=== PATIENT | female | born 1965 | race Caucasian/White ===

== ENCOUNTER 2017-12-10 05:23 | Day surgery (SDC) | payer MEDICAID ==
[2017-12-08 15:32] LABS: CLARITY,URINE CLEAR (Clear); COLOR,URINE YELLOW (Yellow); GLUCOSE, URINE NEGATIVE (Neg); KETONES,URINE NEGATIVE (Neg); LEUKOCYTE ESTERASE ,URINE NEGATIVE (Neg); NITRITES, URINE NEGATIVE (Neg); OCCULT BLOOD,URINE SMALL (Neg); PROTEIN,URINE NEGATIVE (Neg); UROBILINOGEN,URINE 0.2 E.U/dL (0.2-1.0)
[2017-12-08 15:32] LABS: BASOPHILS # (AUTO) 0.1 X10'3 (0-0.2); EOSINOPHILS # (AUTO) 0.1 X10'3 (0-0.9); LYMPHOCYTES # (AUTO) 1.9 X10'3 (1.1-4.8); LYMPHOCYTES % (AUTO) 27.2 % (21-51); MEAN CORPUSCULAR HEMOGLOBIN 30.1 PG (27.0-31.0); MEAN CORPUSCULAR HGB CONC 34.5 % (33.0-36.5); MEAN CORPUSCULAR VOLUME 87.1 FL (78-98); MEAN PLATELET VOLUME 7.6 FL (7.4-10.4); MONOCYTES # (AUTO) 0.3 X10'3 (0-0.9); MONOCYTES % (AUTO) 4.4 % (2-12); NEUTROPHILS # (AUTO) 4.5 X10'3 (1.8-7.7); NEUTROPHILS % (AUTO) 65.4 % (42-75); PRE OP HEMATOCRIT 41.1 % (35.0-45.0); PRE OP HEMOGLOBIN 14.2 g/dL (12.0-16.0); PRE OP PLATELET COUNT 261 X10'3 (140-440); RED BLOOD COUNT 4.72 X10'6 (4.20-5.60); RED CELL DISTRIBUTION WIDTH 13.8 % (11.5-14.5)
[2017-12-08 15:36] LABS: UA COLLECTION TYPE CLN CATCH MIDSTREAM
[2017-12-08 15:39] LABS: BACTERIA,URINE FEW /HPF (Neg); MUCUS STRANDS FEW /LPF (Neg); RBC,URINE 0-2 /HPF (0-2); SQUAMOUS EPITHELIAL CELL,UR MODERATE /LPF (FEW); WBC,URINE 0-4 /HPF (0-4)
[2017-12-08 15:44] LABS: ALBUMIN 3.4 G/DL (3.4-5.0); ALKALINE PHOSPHATASE 73 IU/L (46-116); BLOOD UREA NITROGEN 15 MG/DL (7-18); BUN/CREATININE RATIO 15.6 (6.6-38.0); CALCIUM 8.9 MG/DL (8.5-10.1); CHLORIDE 106 MMOL/L (99-107); CREATININE 0.96 MG/DL (0.40-0.90); PRE OP ALT 23 U/L (30-65); PRE OP ANION GAP 6 (8-16); PRE OP AST 15 U/L (10-37); PRE OP BILIRUB, TOTAL 0.4 MG/DL (0.0-1.0); PRE OP GLUCOSE 137 MG/DL (70-104); PRE OP SODIUM 142 MMOL/L (135-145); TOTAL CARBON DIOXIDE 29.8 MMOL/L (24-32); TOTAL PROTEIN 6.8 G/DL (6.4-8.2); eGFR 62 ML/MIN
[2017-12-08 15:46] LABS: HCG SERUM QL NEGATIVE
[~2017-12-10] VITALS: Ht 165.1 cm; Wt 93.5 kg
[2017-12-10] VITALS (21 sets, daily range): BP systolic 126–189; BP diastolic 75–126
[~2017-12-10 05:23] MED LIST: ALBU8.5H8 IH; CARV6.253 PO; ringers solution, lacted 1,000 ML IV SCH
[2017-12-10] MEDS ORDERED: DOCUMENT DATE & TIME OF BETA-BLOCKER PO ONE (05:30)
[2017-12-10] MEDS ORDERED: ceFOXitin inj 1,000 MG in normal saline 100ml IV soln 100 ML IV ONE (05:30)
[2017-12-10] MEDS ORDERED: albuterol 2.5 MG/3 ML nebule NEB ONE (05:30)
[2017-12-10] MEDS ORDERED: famotidine 20mg tablet PO ONE (05:30)
[2017-12-10] MEDS ORDERED: LIDOcaine 1% (10mg/ml) 2ml vial ONE (05:59)
[2017-12-10] MEDS ORDERED: vasoPRESSIN 20 units/ml inj. ONE (06:47)
[2017-12-10] MEDS ORDERED: neomy sulf/polymyxin B sulf. GU irrigation 1ml amp IR ONE (06:47)
[2017-12-10] MEDS ORDERED: epiNEPHrine 1 mg/ml inj ONE (06:47)
[2017-12-10] MEDS ORDERED: midazolam 2 mg/2 ml injection ONE (07:18)
[2017-12-10] MEDS ORDERED: fentaNYL /PF 50mcg/ml 5ml ampule ONE (07:19)
[2017-12-10] MEDS ORDERED: propofol inj 20 ML IV ONE (07:19)
[2017-12-10] MEDS ORDERED: rocuronium 10mg/ml inj IV ONE (07:19)
[2017-12-10] MEDS ORDERED: LIDOcaine 2% (20mg/ml) 5ml vial ONE (07:19)
[2017-12-10] MEDS ORDERED: sevoflurane 250ml liquid IH ONE (07:20)
[2017-12-10] MEDS ORDERED: dexamethasone sod phosphate 4mg/ml inj. ONE (07:20)
[2017-12-10] MEDS: BUPIVAcaine/PF 2.5 mg/ml (0.25%) 30ml vial ONE ×2 (08:17→08:18)
[2017-12-10] MEDS ORDERED: albuterol 60 PUFF/8GM Inhaler IH ONE (08:34)
[2017-12-10] MEDS ORDERED: neostigmine methylsulfate 1 MG/ML 10ml vial ONE (08:34)
[2017-12-10] MEDS ORDERED: glycopyrrolate 0.2mg/ml inj ONE (08:34)
[2017-12-10] MEDS ORDERED: ondansetron/PF 4mg/2ml inj ONE (08:35)
[2017-12-10] MEDS ORDERED: ringers solution, lacted 1,000 ML IV SCH (08:51)
[2017-12-10] MEDS ORDERED: morphine 4 MG/ML inj SYRINge IV PRN ×2 (08:55)
[2017-12-10] MEDS ORDERED: proCHLORperazine 10 MG/2 ml inj IV PRN (08:55)
[2017-12-10] MEDS ORDERED: meperidine/PF 50mg/ml syringe IV PRN ×3 (08:55)
[2017-12-10] MEDS ORDERED: ondansetron/PF 4mg/2ml inj IV PRN ×2 (08:55→09:10)
[2017-12-10] MEDS ORDERED: normal saline 500ml IV soln 500 ML IV PRN (09:10)
[2017-12-10] MEDS ORDERED: LORazepam 2 mg/ml vial IV PRN (09:10)
[2017-12-10] MEDS ORDERED: diphenhydrAMINE 50 mg/ml inj IV PRN (09:10)
[2017-12-10] MEDS ORDERED: HYDROcodone/acetaminophen 10/325mg tab PO PRN (09:10)
[2017-12-10] MEDS ORDERED: temazepam 15mg capsule PO PRN (09:10)
[2017-12-10] MEDS ORDERED: metoclopramide 5 mg/ml inj IV PRN (09:10)
[2017-12-10] MEDS ORDERED: ipratropium/albuterol 3ml nebule NEB ONE (09:30)
[2017-12-10] MEDS ORDERED: ipratropium/albuterol 3ml nebule ONE (09:32)
[2017-12-10] MEDS: ipratropium/albuterol 3ml nebule NEB PRN (09:35)
[2017-12-10] MEDS ORDERED: meperidine/PF 25mg/ml syringe ONE (09:37)
[2017-12-10] MEDS ORDERED: hydrALAZINE 20mg/ml inj. IV ONE (10:05)
[2017-12-10] MEDS ORDERED: albuterol 2.5 MG/3 ML nebule NEB PRN (11:40)
[2017-12-10] MEDS ORDERED: hydrALAZINE 20mg/ml inj. IV SCH (11:45)
[2017-12-10] MEDS: ketorolac trometh. 30mg/ml inj. IV PRN ×2 (11:51→17:53)
[2017-12-10] MEDS: hydrALAZINE 20mg/ml inj. IV PRN ×2 (11:59→14:53)
[2017-12-10] MEDS: simethicone 80mg chew tab PO SCH ×2 (13:00→17:47)
[2017-12-10] MEDS: HYDROcodone/acetaminophen 10/325mg tab PO PRN (13:39)
[2017-12-10] MEDS: carvedilol 6.25mg tablet PO SCH (17:47)
[2017-12-10] MEDS: docusate sod 100mg capsule PO SCH (20:00)
[2017-12-11] VITALS: BP 154/79
[2017-12-11] MEDS: ketorolac trometh. 30mg/ml inj. IV PRN ×2 (01:08→20:57)
[2017-12-11] MEDS: HYDROcodone/acetaminophen 10/325mg tab PO PRN ×3 (01:11→16:54)
[2017-12-11 04:33] VITALS: BP 138/72
[2017-12-11 05:57] LABS: BASOPHILS % (AUTO) 0.1 % (0-1); EOSINOPHILS # (AUTO) 0.1 X10'3 (0-0.9); EOSINOPHILS % (AUTO) 0.8 % (0-6); LYMPHOCYTES # (AUTO) 1.3 X10'3 (1.1-4.8); MEAN CORPUSCULAR HEMOGLOBIN 30.6 PG (27.0-31.0); MEAN CORPUSCULAR HGB CONC 34.9 % (33.0-36.5); MEAN CORPUSCULAR VOLUME 87.8 FL (78-98); MEAN PLATELET VOLUME 8.3 FL (7.4-10.4); MONOCYTES # (AUTO) 0.7 X10'3 (0-0.9); NEUTROPHILS # (AUTO) 11.3 X10'3 (1.8-7.7); NEUTROPHILS % (AUTO) 84.1 % (42-75); PLATELET COUNT 250 X10'3 (140-440); RED BLOOD COUNT 4.56 X10'6 (4.20-5.60); RED CELL DISTRIBUTION WIDTH 14.6 % (11.5-14.5); WHITE BLOOD COUNT 13.5 X10'3 (4.5-11.0)
[2017-12-11 06:25] LABS: ALANINE AMINOTRANSFERASE 34 U/L (12-78); ALBUMIN 3.1 G/DL (3.4-5.0); ALBUMIN/GLOBULIN RATIO 0.9 (1.1-1.5); ALKALINE PHOSPHATASE 62 IU/L (46-116); ANION GAP 7 (8-16); ASPARTATE AMINO TRANSFERASE 20 U/L (10-37); BILIRUBIN,TOTAL 0.7 MG/DL (0.1-1.0); BLOOD UREA NITROGEN 12 MG/DL (7-18); BUN/CREATININE RATIO 14.8 (6.6-38.0); CALCIUM 8.4 MG/DL (8.5-10.1); CHLORIDE 102 MMOL/L (99-107); CREATININE 0.81 MG/DL (0.40-0.90); GLUCOSE 126 MG/DL (70-104); POTASSIUM 3.7 MMOL/L (3.5-5.1); SODIUM 135 MMOL/L (135-145); TOTAL CARBON DIOXIDE 26.1 MMOL/L (24-32); TOTAL PROTEIN 6.4 G/DL (6.4-8.2); eGFR 75 ML/MIN
[2017-12-11 07:38] VITALS: BP 150/84
[2017-12-11] MEDS: simethicone 80mg chew tab PO SCH ×3 (08:08→17:48)
[2017-12-11] MEDS: carvedilol 6.25mg tablet PO SCH ×2 (08:08→19:16)
[2017-12-11] MEDS: docusate sod 100mg capsule PO SCH ×2 (08:08→19:16)
[2017-12-11] MEDS: enoxaparin 40mg/0.4ml syringe SQ SCH (08:11)
[2017-12-11 11:00] VITALS: BP 151/75
[2017-12-11 18:30] VITALS: BP 161/71
[2017-12-12 00:03] VITALS: BP 120/61
[2017-12-12] MEDS: HYDROcodone/acetaminophen 10/325mg tab PO PRN (05:47)
[2017-12-12] MEDS: ipratropium/albuterol 3ml nebule NEB PRN (06:07)
[2017-12-12 07:15] VITALS: BP 158/74
[2017-12-12] MEDS: carvedilol 6.25mg tablet PO SCH (07:24)
[2017-12-12] MEDS: simethicone 80mg chew tab PO SCH (07:24)
[2017-12-12] MEDS: docusate sod 100mg capsule PO SCH (07:24)
[2017-12-12] MEDS: enoxaparin 40mg/0.4ml syringe SQ SCH (07:27)
== END 2017-12-12 10:32 | disposition home or self-care (01) ==
LOC: PAS 05:23 → SUR 3N 09:10 → PAS 12-12 10:32
PROVIDERS: ATTEND Obstetrics & Gynecology Obstetrics
DX: N87.1 Moderate cervical dysplasia (principal); N83.12 Corpus luteum cyst of left ovary; N83.8 Other noninflammatory disorders of ovary, fallopian tube and broad ligament; I44.7 Left bundle-branch block, unspecified; I08.3 Combined rheumatic disorders of mitral, aortic and tricuspid valves; G43.909 Migraine, unspecified, not intractable, without status migrainosus; J44.9 Chronic obstructive pulmonary disease, unspecified; I10 Essential (primary) hypertension; M19.90 Unspecified osteoarthritis, unspecified site; Z88.6 Allergy status to analgesic agent; Z88.8 Allergy status to other drugs, medicaments and biological substances; Z90.49 Acquired absence of other specified parts of digestive tract; Z79.1 Long term (current) use of non-steroidal anti-inflammatories (NSAID); Z87.891 Personal history of nicotine dependence; Z79.899 Other long term (current) drug therapy
CPT/HCPCS: 36415; 58552; 71046; 80053; 81001; 84703; 85025; 86885; 86900; 86901; 87070; 93005; 93306; 94640; 94760; A4315; J0171; J0360; J0694; J1650; J1885; J2001; J2060; J2175; J2250; J2270; J2405; J2704; J2710; J3010; J3490; J7030; J7120; A7000; J1100

== ENCOUNTER 2017-12-17 21:41 | Emergency (ER) | payer MEDICAID ==
[~2017-12-17] VITALS: Ht 152.4 cm; Wt 89.0 kg
[~2017-12-17 21:41] MED LIST changes: -ringers solution, lacted 1,000 ML IV SCH
[2017-12-17 22:55] LABS: CLARITY,URINE CLEAR (Clear); COLOR,URINE YELLOW (Yellow); GLUCOSE, URINE NEGATIVE (Neg); KETONES,URINE NEGATIVE (Neg); LEUKOCYTE ESTERASE ,URINE NEGATIVE (Neg); NITRITES, URINE NEGATIVE (Neg); OCCULT BLOOD,URINE LARGE (Neg); PROTEIN,URINE TRACE mg/dl (Neg); UROBILINOGEN,URINE 0.2 E.U/dL (0.2-1.0)
[2017-12-17 23:05] LABS: UA COLLECTION TYPE CLN CATCH MIDSTREAM
[2017-12-17 23:08] VITALS: BP 164/80
[2017-12-17 23:23] LABS: BACTERIA,URINE FEW /HPF (Neg); MUCUS STRANDS MANY /LPF (Neg); SQUAMOUS EPITHELIAL CELL,UR FEW /LPF (FEW)
[2017-12-17 23:24] LABS: COARSE GRANULAR CAST 0-3 /LPF (NEGATIVE); HYALINE CASTS 0-3 /LPF (NEGATIVE)
[2017-12-17] MEDS ORDERED: morphine 4 MG/ML inj SYRINge IM ONE (23:45)
[2017-12-17] MEDS ORDERED: ondansetron 4mg rapidly disintigrating tab PO ONE (23:45)
[2017-12-17] MEDS ORDERED: CIPR-230 PO (23:55)
[2017-12-17] MEDS ORDERED: HYDR-565 PO (23:55)
== END 2017-12-18 00:03 | disposition home or self-care (01) ==
LOC: ER 21:44
DX: N39.0 Urinary tract infection, site not specified (principal); Z87.891 Personal history of nicotine dependence; Z98.890 Other specified postprocedural states; Z90.710 Acquired absence of both cervix and uterus; Z90.49 Acquired absence of other specified parts of digestive tract; Z88.5 Allergy status to narcotic agent; Z88.8 Allergy status to other drugs, medicaments and biological substances; Z79.899 Other long term (current) drug therapy
CPT/HCPCS: 81001; 87088; 96372; 99284; J2270

== ENCOUNTER 2018-04-13 21:12 | Emergency (ER) | payer MEDICAID ==
[~2018-04-13] VITALS: Ht 167.6 cm; Wt 92.5 kg
[2018-04-13] MEDS ORDERED: LORazepam 1 MG tablet PO ONE (21:35)
[2018-04-13] MEDS ORDERED: HYDROcodone/acetaminophen 5mg/325mg tablet PO ONE (21:35)
[2018-04-13] MEDS ORDERED: HYDR-569 PO (22:29)
[2018-04-13 22:48] VITALS: BP 158/76
== END 2018-04-13 22:35 | disposition home or self-care (01) ==
LOC: ER 21:12
DX: S02.2XXA Fracture of nasal bones, initial encounter for closed fracture (principal); I10 Essential (primary) hypertension; J45.909 Unspecified asthma, uncomplicated; Z90.49 Acquired absence of other specified parts of digestive tract; Z90.710 Acquired absence of both cervix and uterus; Z88.5 Allergy status to narcotic agent; Z88.8 Allergy status to other drugs, medicaments and biological substances; Z79.899 Other long term (current) drug therapy; Y08.89XA Assault by other specified means, initial encounter; Y93.89 Activity, other specified; Y92.89 Other specified places as the place of occurrence of the external cause; Y99.8 Other external cause status
CPT/HCPCS: 70150; 93005; 99284

== ENCOUNTER 2022-01-19 19:22 | Emergency (ER) | payer MEDICAID ==
[~2022-01-19] VITALS: Ht 165.1 cm; Wt 78.2 kg
[~2022-01-19 19:22] MED LIST changes: +ALBU8.5H17 IH; -ALBU8.5H8 IH; +HYDR-4383 PO
[2022-01-19 19:50] LABS: CLARITY,URINE SLIGHTLY CLOUDY (Clear); COLOR,URINE YELLOW (Yellow); GLUCOSE, URINE 100 mg/dl (Neg); KETONES,URINE NEGATIVE (Neg); LEUKOCYTE ESTERASE ,URINE SMALL (Neg); NITRITES, URINE NEGATIVE (Neg); OCCULT BLOOD,URINE MODERATE (Neg); PH,URINE 5.5 (4.8-8.0); PROTEIN,URINE NEGATIVE (Neg); UROBILINOGEN,URINE 0.2 E.U/dL (0.2-1.0)
[2022-01-19 19:58] LABS: UA COLLECTION TYPE CLN CATCH MIDSTREAM
[2022-01-19 19:59] LABS: BASOPHILS % (AUTO) 0.4 % (0-1); EOSINOPHILS # (AUTO) 0.1 X10'3 (0-0.9); HEMATOCRIT 48.3 % (35.0-45.0); HEMOGLOBIN 16.4 g/dl (12.0-16.0); LYMPHOCYTES # (AUTO) 2.3 X10'3 (1.1-4.8); LYMPHOCYTES % (AUTO) 23.9 % (21-51); MEAN CORPUSCULAR HEMOGLOBIN 29.6 PG (27.0-31.0); MEAN CORPUSCULAR HGB CONC 33.9 g/dL (33.0-36.5); MEAN CORPUSCULAR VOLUME 87.3 FL (78-98); MEAN PLATELET VOLUME 7.6 FL (7.4-10.4); MONOCYTES # (AUTO) 0.5 X10'3 (0-0.9); MONOCYTES % (AUTO) 5.2 % (2-12); NEUTROPHILS # (AUTO) 6.8 X10'3 (1.8-7.7); NEUTROPHILS % (AUTO) 69.5 % (42-75); PLATELET COUNT 327 X10'3 (140-440); RED BLOOD COUNT 5.53 X10'6 (4.20-5.60); RED CELL DISTRIBUTION WIDTH 13.1 % (11.5-14.5); WHITE BLOOD COUNT 9.7 X10'3 (4.5-11.0)
[2022-01-19 20:05] LABS: ALANINE AMINOTRANSFERASE 24 U/L (12-78); ALBUMIN 4.3 G/DL (3.4-5.0); ALBUMIN/GLOBULIN RATIO 1.1 (1.1-1.5); ALKALINE PHOSPHATASE 95 IU/L (46-116); ANION GAP 11 (8-16); ASPARTATE AMINO TRANSFERASE 11 U/L (10-37); BLOOD UREA NITROGEN 25 MG/DL (7-18); BUN/CREATININE RATIO 22.1 (6.6-38.0); CALCIUM 9.4 MG/DL (8.5-10.1); CHLORIDE 101 MMOL/L (99-107); CREATININE 1.13 MG/DL (0.40-0.90); GLUCOSE 234 MG/DL (70-104); POTASSIUM 4.2 MMOL/L (3.5-5.1); SODIUM 139 MMOL/L (135-145); TOTAL CARBON DIOXIDE 26.7 MMOL/L (24-32); TOTAL PROTEIN 8.2 G/DL (6.4-8.2); eGFR 50 ML/MIN
[2022-01-19 20:08] LABS: LIPASE 112 U/L (73-393)
[2022-01-19 20:09] LABS: BACTERIA,URINE 1+ /HPF (Neg); MUCUS STRANDS FEW /LPF (Neg); RBC,URINE 0-2 /HPF (0-2); SQUAMOUS EPITHELIAL CELL,UR FEW /LPF (FEW); WBC,URINE 30-50 /HPF (0-4)
[2022-01-19 20:10] LABS: WBC CLUMPS,URINE MODERATE /HPF (NEGATIVE)
[2022-01-19] MEDS ORDERED: cephalexin 500mg capsule PO ONE (21:45)
[2022-01-19] MEDS ORDERED: LIDOcaine Viscous 15ml cup MM ONE (21:55)
[2022-01-19] MEDS ORDERED: mag hydrox/Alum hydrox/simeth 30ml oral suspension PO ONE (21:55)
[2022-01-19] MEDS ORDERED: sucralfate 1gm/10ml UD suspension PO STA (21:58)
[2022-01-19] MEDS ORDERED: sucralfate 1 gm tablet PO ONE (22:25)
[2022-01-19 22:43] VITALS: BP 168/90
[2022-01-20] MEDS ORDERED: sucralfate 1 gm tablet PO SCH (07:00)
[2022-01-20] MEDS ORDERED: sucralfate 1gm/10ml UD suspension PO SCH (07:00)
== END 2022-01-19 22:45 | disposition home or self-care (01) ==
LOC: ER 19:24
DX: R07.9 Chest pain, unspecified (principal); R10.30 Lower abdominal pain, unspecified; I10 Essential (primary) hypertension; J45.909 Unspecified asthma, uncomplicated; F12.10 Cannabis abuse, uncomplicated; Z88.5 Allergy status to narcotic agent; Z79.899 Other long term (current) drug therapy; Z88.8 Allergy status to other drugs, medicaments and biological substances
CPT/HCPCS: 36415; 74176; 80053; 81001; 83690; 84484; 85025; 87088; 93005; 99285